=== PATIENT | female | born 1995 | race Two or more races ===

== ENCOUNTER 2023-12-30 03:45 | Inpatient (IN) | payer OTHER ==
[~2023-12-30] VITALS: Ht 165.1 cm; Wt 85.3 kg
[2023-12-30] MEDS ORDERED: RINGERS SOLUTION,LACTATED 1,000 ML IV SCH (04:00)
[2023-12-30] MEDS ORDERED: PRENATAL + DHA1 EAC1 PO (04:15)
[2023-12-30 04:42] LABS: URINE APPEARANCE Cloudy; URINE BILIRRUBIN Negative (NEGATIVE); URINE BLOOD Negative; URINE COLOR Yellow; URINE GLUCOSE Negative (NEGATIVE); URINE KETONE Negative (NEGATIVE); URINE LEUKOCYTE Small; URINE NITRATE Negative; URINE PROTEIN Negative (NEGATIVE); URINE UROBILINOGEN 0.2 E.U./dl
[2023-12-30 04:43] LABS: HEMATOCRIT 38.3 % (36.0-45.00); HEMOGLOBIN 12.6 g/dL (12.0-15.00); MEAN CELL VOLUME 75.7 fL (80.00-100.00); MEAN CORPUSCULAR HEMOGLOBIN 24.9 pg (27.00-32.0); MEAN CORPUSCULAR HGB CONC 32.9 g/dl (32.0-36.0); PLATELET COUNT 265 K/uL (150-450); RED BLOOD COUNT 5.06 M/uL (4.00-6.00); RED CELL DISTRIBUTION WIDTH 16.1 % (11.5-14.5)
[2023-12-30 04:45] LABS: URINE BACTERIA 2643.4 uL (0.0-1933); URINE EPITHELIAL CELLS 81.5 uL (0.0-38.8); URINE RBC 4.2 uL (0.0-20.8); URINE WBC 83.2 uL (0.0-23.2)
[2023-12-30 04:46] LABS: URINE CAST 0.15 uL (0.0-1.40)
[2023-12-30 04:49] LABS: INR < 0.93; PARTIAL THROMBOPLASTIN TIME 27.9 SECONDS (22.0-34.0); PROTHROMBIN TIME 9.9 SECONDS (9.0-11.5)
[2023-12-30 04:54] LABS: ALBUMIN 2.7 gm/dL (3.4-5.0); BILIRUBIN TOTAL 0.3 mg/dL (0.3-1.2); CALCIUM 9.3 mg/dL (8.5-10.1); CREATININE SERUM 0.53 mg/dL (0.55-1.02); GFR 139.44; GLOBULINA 4.1 G/DL (2.4-3.5); POTASSIUM 4.06 mEq/L (3.5-5.1); TOTAL PROTEIN 6.8 gm/dL (6.4-8.2)
[2023-12-30] MEDS ORDERED: OXYTOCIN 20 UNITS/500ML RL PIGGYBAG IV ONE (08:51)
[2023-12-30] MEDS ORDERED: OXYTOCIN 500 ML IV SCH (09:00)
[2023-12-30] MEDS ORDERED: OXYTOCIN 20 UNITS/1000ML RL PIGGYBAG IV ONE (09:15)
[2023-12-30] MEDS ORDERED: ERYTHROMYCIN BASE 1 GM TUBE OP ONE ×2 (09:15→21:30)
[2023-12-30] MEDS ORDERED: LIDOCAINE HCL 1% 10ML VIAL ONE (09:16)
[2023-12-30] MEDS ORDERED: CHLORHEXIDINE GLUCONATE 120 ML BOTTLE TOP ONE ×2 (09:16→21:30)
[2023-12-30] MEDS ORDERED: PROMETHAZINE HCL 25 MG/ML AMPUL ONE (10:35)
[2023-12-30] MEDS ORDERED: MEPERIDINE HCL/PF 50 MG/ML VIAL IV ONE (10:45)
[2023-12-30] MEDS ORDERED: PROMETHAZINE HCL 25 MG/ML AMPUL IV ONE (10:45)
[2023-12-30] MEDS ORDERED: LIDOCAINE HCL 1% 10ML VIAL IJ ONE (21:30)
== END 2024-01-01 17:53 | disposition home or self-care (01) | DRG 807 ==
LOC: LDR 03:45 → OB/GYN 20:18
PROVIDERS: ADMIT Specialist; ATTEND Specialist
PROC: 10E0XZZ Delivery of Products of Conception, External Approach (ICD-10-PCS; principal; 2023-12-30)
PROC: 0KQM0ZZ Repair Perineum Muscle, Open Approach (ICD-10-PCS; 2023-12-30)
PROC: 4A1HXCZ Monitoring of Products of Conception, Cardiac Rate, External Approach (ICD-10-PCS; 2023-12-30)
DX: O70.1 Second degree perineal laceration during delivery (principal); Z37.0 Single live birth; Z3A.39 39 weeks gestation of pregnancy; Z20.822 Contact with and (suspected) exposure to COVID-19